=== PATIENT | male | born 1980 | race Caucasian/White ===

== ENCOUNTER 2020-11-04 11:50 | Inpatient (IN) | payer OTHER ==
[2020-11-04] MEDS ORDERED: METHOCARBAMOL 500 MG TABLET PO PRN (14:01)
[2020-11-04] MEDS ORDERED: MAGNESIUM HYDROX 2400MG/30ML ORAL SUSPENSION 30 ML CUP PO PRN (14:01)
[2020-11-04] MEDS ORDERED: BISMUTH SUBSALICYLATE 524 MG/30 ML PO PRN (14:01)
[2020-11-04] MEDS ORDERED: IBUPROFEN 400 MG TABLET (FP) PO PRN (14:01)
[2020-11-04] MEDS ORDERED: ONDANSETRON *ODT* 4 MG TABLET SL PRN (14:01)
[2020-11-04] MEDS ORDERED: MAG HYDROX/AL HYDROX/SIMETH 30 ML UNIT-DOSE CUP PO PRN (14:01)
[2020-11-04] MEDS ORDERED: MENTHOL/PHENOL 1 EACH UD MM PRN (14:01)
[2020-11-04] MEDS ORDERED: ACETAMINOPHEN 325 MG TABLET (FP) PO PRN ×2 (14:01)
[2020-11-04] MEDS ORDERED: MAGNESIUM CITRATE 300 ML BOTTLE PO PRN (14:01)
[2020-11-04] MEDS: NICOTINE 7 MG/24 HOURS TOPICAL PATCH TD SCH (18:21)
[2020-11-04] MEDS: hydrOXYzine PAMOATE 25 MG CAPSULE (FP) PO SCH ×2 (18:22→22:33)
[2020-11-04] MEDS: diazePAM 5 MG TABLET PO SCH ×2 (18:22→22:35)
[2020-11-04] MEDS: PRENATAL VITAMINS W/ FOLIC ACID TABLET (FP) PO SCH (18:22)
[2020-11-04] MEDS: diazePAM 5 MG TABLET PO PRN (20:43)
[2020-11-04] MEDS ORDERED: MELATONIN 5 MG TABLETS PO SCH (22:00)
[2020-11-04] MEDS: THIAMINE HCL 100 MG TABLET (FP) PO SCH (22:33)
[2020-11-04] MEDS: SUVOREXANT 10 MG TABLET PO PRN (22:35)
[2020-11-05] MEDS: methaDONE HCL 40 MG DISPERSABLE TABLET PO SCH (05:36)
[2020-11-05] MEDS: hydrOXYzine PAMOATE 25 MG CAPSULE (FP) PO SCH ×5 (05:36→22:26)
[2020-11-05] MEDS: diazePAM 5 MG TABLET PO SCH ×4 (05:38→23:00)
[2020-11-05] MEDS: PRENATAL VITAMINS W/ FOLIC ACID TABLET (FP) PO SCH (10:11)
[2020-11-05] MEDS: NICOTINE 7 MG/24 HOURS TOPICAL PATCH TD SCH (10:11)
[2020-11-05] MEDS: NICOTINE 10 MG CARTRIDGE (INHALER) IH PRN (10:12)
[2020-11-05 12:37] LABS: HEMATOCRIT 46.3 % (35.4-49); HEMOGLOBIN 15.5 GM/dL (11.7-16.9); MCH 29.3 pg (25.7-33.7); MCHC 33.3 g/dl (32.0-35.9); MEAN CELL VOLUME 87.8 fl (80-96); MEAN PLT VOLUME 8.5 fl (7.5-11.1); PLATELET COUNT 361 10^3/uL (134-434); RBC 5.28 M/mm3 (4.00-5.60); RDW 14.9 % (11.9-15.9); WHITE BLOOD COUNT 8.3 K/mm3 (4.0-10.0)
[2020-11-05 12:40] LABS: ALBUMIN 3.9 g/dl (3.4-5.0); CALCIUM 9.9 mg/dL (8.5-10.1)
[2020-11-05 12:41] LABS: BLOOD UREA NITROGEN 10.5 mg/dL (7-18)
[2020-11-05 12:44] LABS: CREATININE 0.8 mg/dL (0.55-1.3)
[2020-11-05 12:45] LABS: BILIRUBIN,TOTAL 0.3 mg/dL (0.2-1); TOT PROT 8.3 g/dl (6.4-8.2)
[2020-11-05] MEDS: diazePAM 5 MG TABLET PO PRN ×2 (13:57→21:02)
[2020-11-05] MEDS: THIAMINE HCL 100 MG TABLET (FP) PO SCH (22:26)
[2020-11-05] MEDS: SUVOREXANT 10 MG TABLET PO PRN (22:26)
[2020-11-06] MEDS: methaDONE HCL 40 MG DISPERSABLE TABLET PO SCH (05:52)
[2020-11-06] MEDS: diazePAM 5 MG TABLET PO SCH ×3 (05:56→22:11)
[2020-11-06] MEDS: hydrOXYzine PAMOATE 25 MG CAPSULE (FP) PO SCH ×5 (08:08→22:11)
[2020-11-06] MEDS: diazePAM 5 MG TABLET PO PRN ×2 (10:27→17:54)
[2020-11-06] MEDS: PRENATAL VITAMINS W/ FOLIC ACID TABLET (FP) PO SCH (10:27)
[2020-11-06] MEDS: NICOTINE 7 MG/24 HOURS TOPICAL PATCH TD SCH (10:27)
[2020-11-06] MEDS: NICOTINE 10 MG CARTRIDGE (INHALER) IH PRN (10:28)
[2020-11-06 21:47] VITALS: BP 100/62; PULSE 67; TEMP 96.9
[2020-11-06] MEDS: THIAMINE HCL 100 MG TABLET (FP) PO SCH (22:11)
[2020-11-07] MEDS ORDERED: diazePAM 5 MG TABLET PO SCH (06:00)
[2020-11-08] MEDS ORDERED: diazePAM 5 MG TABLET PO ONE (06:00)
== END 2020-11-07 | disposition home or self-care (01) | DRG 773 ==
LOC: YASAS 11:50 → Y3N 14:10
PROVIDERS: ADMIT Allergy & Immunology; ATTEND Allergy & Immunology
PROC: HZ2ZZZZ Detoxification Services for Substance Abuse Treatment (ICD-10-PCS; principal; 2020-11-04)
DX: F10.230 Alcohol dependence with withdrawal, uncomplicated (principal); F13.231 Sedative, hypnotic or anxiolytic dependence with withdrawal delirium; F11.20 Opioid dependence, uncomplicated; F12.20 Cannabis dependence, uncomplicated; F17.210 Nicotine dependence, cigarettes, uncomplicated; F19.282 Other psychoactive substance dependence with psychoactive substance-induced sleep disorder; Z86.59 Personal history of other mental and behavioral disorders; Z56.0 Unemployment, unspecified; Z59.0 Homelessness
CPT/HCPCS: 36415; 80053; 85027; 86780; 93005; 93010; C9803; U0003; U0005